=== PATIENT | female | born 1995 | race African-American/Black ===

== ENCOUNTER 2016-10-28 15:52 | Emergency (ER) | payer MEDICAID ==
[2016-10-28 16:13] VITALS: TEMP 98; BMI 22.2
[2016-10-28] MEDS ORDERED: NS 1,000 ML IV ONE ×2 (16:29)
[2016-10-28] MEDS ORDERED: SODIUM CHLORIDE 0.9% 3 ML FLUSH FLUSH PRN (16:29)
--- NOTE | 2016-10-28 16:29 | EDPRACDOC ---
- General Information Information Source: Patient Mode Of Arrival: Ambulance - History of Present Illness Onset: 2 HOURS Pain Location: Reports: Diffuse Pain Context: Reports: Spontaneous Pain Severity: Mild Pain Quality: Reports: Aching (PRESSURE) Pain Radiation: Reports: No Radiation Last Menstrual Period: YEARS : No (IUD AND BCP) Control Method: Reports: IUD, BCPs Modifying Factors: improves with: Nothing Female Associated Signs & Symptoms: Reports: Nausea, Vomiting, Other (HEADACHE AND ABDOMINAL PAIN) Oral Intake: Decreased Urinary Output: Normal <David Rose - Last Filed: 10/28/16 17:30> <Shani Sargent - Last Filed: 10/28/16 18:39> <Shilpa Farah - Last Filed: 10/28/16 18:46> - General Information Chief Complaint: Abdominal Pain Stated Complaint: GENERALIZED WEAKNESS Time Seen by Provider: 10/28/16 16:26 Home Medications: Home Medications Montelukast Sodium 10 mg PO QHS 06/18/15 Cyclobenzaprine HCl [Flexeril] 10 mg PO TID PRN #20 tablet 07/11/16 Albuterol Sulfate [Proair Hfa] 2 puff INH Q4H PRN 10/28/16 Fluticasone/Salmeterol [Advair Hfa 115-21 Mcg Inhaler] 2 inh INH BID 10/28/16 Lamotrigine [Lamictal Xr] 200 mg PO BID 10/28/16 Levonorgestrel [Mirena] 1 each IY .[id number] 10/28/16 Loratadine 10 mg PO DAILY 10/28/16 Norethindrone-Ethinyl Estrad [Alyacen] 1 tab PO DAILY 10/28/16 Olopatadine HCl [Pataday] 1 drop OU DAILY 10/28/16 Oxycodone HCl/Acetaminophen [Percocet 5-325 mg Tablet] 1 tab PO Q4H PRN #10 tablet 10/28/16 PEG-Electrolytes (Miralax) [Miralax] 17 gm PO DAILY #1 box 10/28/16 Allergies/Adverse Reactions: Allergies Allergy/AdvReac Type Severity Reaction Status Date / Time No Known Allergies Allergy Verified 10/28/16 16:13 - History of Present Illness HPI: PT PRESENTS TO ED WITH 1-2 DAYS OF DIFFUSE ABDOMINAL PAIN N/V AND HEADACHE FOR 1 -2 DAYS. NO FEVERS OR CHILLS AT THIS TIME. WAS RECENTLY TREATED FOR BACTERIAL VAGINOSIS SHE STATES THOSE SYMPTOMS ARE GONE. PT STATES THE PAIN IS ACHY AND PRESSURE LIKE SEEMS TO GET WORSE WITH N/V. (David Rose) ED Past Medical History - History Reviewed Yes Nurses notes reviewed and agree except as marked Travel Outside of [place] in the Last 3 Months?: No - Patient Medical History Neurological History: Reports: Seizures Respiratory History: Reports: Asthma Psychological History: Denies: Depression Surgical History: Denies: Hysterectomy - Social Medical History Smoking Status: Never smoker ETOH: None Substance Abuse: None Lives With: Other Lives In: Home <David Rose - Last Filed: 10/28/16 17:30> EDM Review of Systems - Review of Systems ROS Negative Except as Marked: Yes All systems reviewed and were negative except as marked Constitutional: No Symptoms Reported. negative: Fever, Chills, Weakness, Fatigue, Loss of Appetite Eyes: No Symptoms Reported. negative: Redness, Blurred Vision, Double Vision, Discharge, Pain, Light Sensitive, Photophobia Ears: No Symptoms Reported. negative: Pain, Hearing Loss, Drainage, Ear Pulling Throat: No Symptoms Reported. negative: Pain, Swelling Nose: No Symptoms Reported. negative: Congestion, Bleeding, Discharge, Injection, Swelling, Deformity, Ecchymosis, Tender, Abrasion, Laceration Mouth: No Symptoms Reported. negative: Pain, Drooling Respiratory: No Symptoms Reported. negative: Cough, Brassy Cough, Barky Cough, Shortness of Breath, Wheezing, Hemoptysis Cardiovascular: No Symptoms Reported. negative: Chest Pain, Palpitations, Syncope, Edema, Orthopnea, PND, Skin Mottling, Cyanosis Gastrointestinal: Nausea, Pain, Vomiting. negative: Constipation, Diarrhea, Formula Intolerance, Melena Genitourinary: No Symptoms Reported. negative: Dysuria, Hematuria, Frequency, Discharge, Bleeding, Testicular Pain, Neurological: Headache. negative: Dizziness, Gait Difficulty, Numbness, Seizure , Speech Difficulty, Weakness Musculoskeletal: No Symptoms Reported. negative: Neck, Chestwall, Ribs, Back, Shoulder, Arm, Elbow, Forearm, Wrist, Hand, Pelvis, Hip, Femur, Knee, Leg, Ankle , Foot Integumentary: No Symptoms Reported. negative: Itching, Rash, Bruising, Wound Allergic/Immunologic: No Symptoms Reported. negative: Hives, Itching Hematologic: No Symptoms Reported. negative: Lymphadenopathy, Easy Bruising, Easy Bleeding Endocrine: No Symptoms Reported. negative: Weight Gain, Weight Loss Psychiatric: No Symptoms Reported. negative: Anxiety, Depression, Hallucinations, Insomnia, Suicidal <David Rose - Last Filed: 10/28/16 17:30> - Physical Exam Constitutional: Alert (Awake), No apparent distress Oriented to: Time, Person, Place - HEENT Head: Normal ( normocephalic) Eye Exam: Normal (PERRL, EOMI, Sclera white) Oropharynx: Normal (Pharynx:Moist without exudate,Gums-no swelling) Tympanic Membrane: Normal ENT EAC: Normal TMJ: Normal Nose: No Symptoms Reported (septum midline) Neck: Normal (FROM, trachea at midline) - Respiratory/Cardiovascular Respiratory: Normal - CTA (BBS clear to auscultation without adventitious sounds ) Cardiovascular: Normal (RRR without murmur, gallop or rub) - GI Auscultation: Normal (NABS) Palpation: Normal (Soft,No rebound or guarding, non distended) Tenderness: Diffuse, Mild (NO REBOUND OR GUARDING NOTED ON DISTRACTED EXAM.) Lu's Sign: Negative - Bladder: Normal - Musculoskeletal Back: Normal (Non-Tender) Extremities: Normal (Normal tone, Pulses 2+ No cyanosis or edema, FROM) - Integumentary Skin: Normal, Warm, Dry Lymphatics: Normal (no adenopathy) - Neurologic Memory Impaired: Normal Motor Function: Normal (Normal tone, Pulses 2+ No cyanosis or edema, FROM) Cranial Nerve: Normal (CN II-X11 intact sensation, strength 5/5) Cerebellar: Normal Mood Description: Normal Perception: Normal <David Rose - Last Filed: 10/28/16 17:30> - Differential Diagnosis Cholecystitis, Cholelithiasis, Colic, Constipation, Pancreatitis, PUD, UTI - Results 10/28/16 16:50 10/28/16 16:50 <David Rose - Last Filed: 10/28/16 17:30> - Re-evaluation Re-evaluation 1 Re-evaluation Time: 18:00 - Results 10/28/16 16:50 10/28/16 16:50 <Shani Sargent - Last Filed: 10/28/16 18:39> - Results 10/28/16 16:50 10/28/16 16:50 - Diagnostic Imaging Abdomen Image interpreted by: Radiologist <Shilpa Farah - Last Filed: 10/28/16 18:46> - Re-evaluation Re-evaluation 1 No changes in clinical status or new information from previous documentation. Vital Signs: Temp:98 F HR: 99 BP: 137/60 RR: 20 Pox: 99%. Continue with current plan. (Shani Sargent) - Results WBC 7.9 xk/uL (3.8-10.8) 10/28/16 16:50 RBC 4.46 xM/uL (4.20-5.40) 10/28/16 16:50 Hgb 13.1 g/dL (12.0-16.0) 10/28/16 16:50 Hct 38.8 % (36-47) 10/28/16 16:50 MCV 87 fL (81-99) 10/28/16 16:50 MCH 29.3 pg (27-32) 10/28/16 16:50 MCHC 33.7 g/dl (33-36) 10/28/16 16:50 RDW 13.3 % (11.5-14.5) 10/28/16 16:50 Plt Count 177 xk/uL (130-400) 10/28/16 16:50 MPV 7.6 fL (7.4-10.4) 10/28/16 16:50 Neut % (Auto) 79.7 % (45-76) H 10/28/16 16:50 Lymph % (Auto) 11.9 % (17-44) L 10/28/16 16:50 [place] % (Auto) 7.7 % (3-10) 10/28/16 16:50 Eos % (Auto) 0.3 % (0-5) 10/28/16 16:50 Baso % (Auto) 0.4 % (0-2) 10/28/16 16:50 Absolute Neuts (auto) 6.24 xk/uL (1.7-8.2) 10/28/16 16:50 Absolute Lymphs (auto) 0.87 xk/uL (0.65-4.75) 10/28/16 16:50 Sodium 139 mEq/L (137-146) 10/28/16 16:50 Potassium 4.2 mEq/L (3.5-5.1) 10/28/16 16:50 Chloride 103 mEq/L (98-107) 10/28/16 16:50 Carbon Dioxide 25 mMOL/L (22-33) 10/28/16 16:50 Anion Gap 15 mEq/L (8-16) 10/28/16 16:50 BUN 22 MG/DL (7-17) H 10/28/16 16:50 Creatinine 0.80 MG/DL (0.52-1.04) 10/28/16 16:50 Estimated GFR (MDRD) > 60 mL/min (>=60) 10/28/16 16:50 Glucose 85 mg/dL (70-99) 10/28/16 16:50 Calculated Osmolality 270 MOs/Kg (270-290) 10/28/16 16:50 Calcium 9.4 MG/DL (8.4-10.2) 10/28/16 16:50 Total Bilirubin 0.4 MG/DL (0.2-1.3) 10/28/16 16:50 AST 21 IU/L (14-36) 10/28/16 16:50 ALT 30 IU/L (9-52) 10/28/16 16:50 Alkaline Phosphatase 66 IU/L (38-126) 10/28/16 16:50 Total Protein 8.2 G/DL (6.3-8.2) 10/28/16 16:50 Albumin 4.4 G/DL (3.5-5.0) 10/28/16 16:50 Lipase 36 U/L (23-300) 10/28/16 16:50 Urine Color Yellow 10/28/16 16:20 Urine Clarity Sl cldy 10/28/16 16:20 Urine pH 5.0 (5.0-8.0) 10/28/16 16:20 Ur Specific [place] 1.025 (1.003-1.035) 10/28/16 16:20 Urine Protein Neg (NEG/TRACE) 10/28/16 16:20 Urine Glucose (UA) Neg (NEGATIVE) 10/28/16 16:20 Urine Ketones Neg (NEGATIVE) 10/28/16 16:20 Urine Occult Blood Neg (NEG/TRACE) 10/28/16 16:20 Urine Nitrite Neg (NEGATIVE) 10/28/16 16:20 Urine Bilirubin Neg (NEGATIVE) 10/28/16 16:20 Urine Urobilinogen <2.0 MG/DL (0-1) 10/28/16 16:20 Ur Leukocyte Esterase Neg (NEGATIVE) 10/28/16 16:20 Urine RBC 0-2 (0-5) 10/28/16 16:20 Urine WBC 2-5 (0-5) 10/28/16 16:20 Urine Bacteria Few (NEG/FEW) 10/28/16 16:20 Urine Mucus Occ (NEG/OCC) 10/28/16 16:20 Urine Test Neg (NEGATIVE) 10/28/16 16:20 Lab Results 10/28/16 10/28/16 10/28/16 16:50 16:50 16:20 WBC 7.9 RBC 4.46 Hgb 13.1 Hct 38.8 MCV 87 MCH 29.3 MCHC 33.7 RDW 13.3 Plt Count 177 MPV 7.6 Neut % (Auto) 79.7 H Lymph % (Auto) 11.9 L [place] % (Auto) 7.7 Eos % (Auto) 0.3 Baso % (Auto) 0.4 Absolute Neuts (auto) 6.24 Absolute Lymphs (auto) 0.87 Sodium 139 Potassium 4.2 Chloride 103 Carbon Dioxide 25 Anion Gap 15 BUN 22 H Creatinine 0.80 Estimated GFR (MDRD) > 60 Glucose 85 Calculated Osmolality 270 Calcium 9.4 Total Bilirubin 0.4 AST 21 ALT 30 Alkaline Phosphatase 66 Total Protein 8.2 Albumin 4.4 Lipase 36 Urine Color Yellow Urine Clarity Sl cldy Urine pH 5.0 Ur Specific [place] 1.025 Urine Protein Neg Urine Glucose (UA) Neg Urine Ketones Neg Urine Occult Blood Neg Urine Nitrite Neg Urine Bilirubin Neg Urine Urobilinogen <2.0 Ur Leukocyte Esterase Neg Urine RBC 0-2 Urine WBC 2-5 Urine Bacteria Few Urine Mucus Occ Urine Test 10/28/16 16:20 WBC RBC Hgb Hct MCV MCH MCHC RDW Plt Count MPV Neut % (Auto) Lymph % (Auto) [place] % (Auto) Eos % (Auto) Baso % (Auto) Absolute Neuts (auto) Absolute Lymphs (auto) Sodium Potassium Chloride Carbon Dioxide Anion Gap BUN Creatinine Estimated GFR (MDRD) Glucose Calculated Osmolality Calcium Total Bilirubin AST ALT Alkaline Phosphatase Total Protein Albumin Lipase Urine Color Urine Clarity Urine pH Ur Specific [place] Urine Protein Urine Glucose (UA) Urine Ketones Urine Occult Blood Urine Nitrite Urine Bilirubin Urine Urobilinogen Ur Leukocyte Esterase Urine RBC Urine WBC Urine Bacteria Urine Mucus Urine Test Neg (Shani Sargent W) (Shilpa Farah N) - Diagnostic Imaging Abdomen 10/28/16 18:46 Patient Name: SOLO GALEANO LOC: ED : 1995 AGE: 21 Order Date:10/28/16 Date of Service:12/09 Report # [id number] Ord Physician: David Rose Exam # [id number] Emergency Physician: Provider,ER Exam(s): [id number] CT/CT ABD-PELV W/IV CM CLINICAL DATA: Epigastric abdominal pain and vomiting for 2 days. EXAM: CT ABDOMEN AND PELVIS WITH CONTRAST TECHNIQUE: Multidetector CT imaging of the abdomen and pelvis was performed using the standard protocol following bolus administration of intravenous contrast. Due to breathing motion artifact, imaging obtained twice in attempt to reduce motion artifact. CONTRAST: 100 mL Isovue 370 IV COMPARISON: None. FINDINGS: Breathing motion artifact with motion through the upper and to a lesser extent lower abdomen. Lower chest: The included lung bases are clear. Liver: Dome of the right lobe of the liver not included in the field of view. Liver is otherwise unremarkable. Hepatobiliary: Gallbladder physiologically distended, no calcified stone. No biliary dilatation. Pancreas: No ductal dilatation or inflammation. Evaluation limited by paucity of intra-abdominal fat and adjacent non-opacified bowel loops. Spleen: Normal. Adrenal glands: No nodule. Kidneys: Symmetric renal enhancement. No hydronephrosis. Excretion secondary to repeat examination. Stomach/Bowel: Evaluation limited by lack of enteric contrast, mild motion artifact, and paucity of intra-abdominal fat. Stomach physiologically distended. There are no dilated small bowel loops. Moderate stool burden throughout the entire colon. The appendix is not confidently identified, no pericecal inflammatory change. Vascular/Lymphatic: No retroperitoneal adenopathy. Abdominal aorta is normal in caliber. Reproductive: The uterus is deviated to the left. Detailed evaluation obscured by motion and adjacent non-opacified bowel loops. An IUD is in place. There is a probable corpus luteal cyst in the right ovary. The left ovary is not confidently identified. Bladder: Physiologically distended without wall thickening. Other: No free air, free fluid, or intra-abdominal fluid collection. Musculoskeletal: There are no acute or suspicious osseous abnormalities. IMPRESSION: 1. No acute abnormality on motion limited exam. 2. Moderate stool burden, can be seen with constipation. 3. Probable corpus luteal cyst in the right ovary. IUD in the uterus. Electronically Signed By: Afia Hyatt M.D. On: 10/28/2016 18:29 Electronically Signed By: Afia Hyatt MD Electronically Signed Date/Time: 832 Dictate Date/Time: 10/28/161820 Technologist: Marly Phelan Transcribed By: Juvenal Transcribed Date/Time: 10/28/161828 (Shilpa Farah) <aDvid Rose - Last Filed: 10/28/16 17:30> - Departure Disposition: Home Education/Counseling Given To: Patient Education/Counseling Given Regarding: Diagnosis, Treatment, Prognosis, Follow Up <Shani Sargent - Last Filed: 10/28/16 18:39> - Departure Yes I personally saw and evaluated the patient. <Shilpa Farah - Last Filed: 10/28/16 18:46> - Departure Condition: Stable Final Diagnosis: Right ovarian cyst Constipation Qualifiers: Constipation type: unspecified constipation type Qualified Code(s): K59.00 - Constipation, unspecified Instructions: Ovarian Cyst (ED), Constipation (ED), High Fiber Diet (ED), Acute Abdominal Pain (ED) Referrals: None,No Provider [Primary Care Provider] - One Week Prescriptions: New PEG-Electrolytes (Miralax) [Miralax] 17 gm PO DAILY #1 box Continue Oxycodone HCl/Acetaminophen [Percocet 5-325 mg Tablet] 1 tab PO Q4H PRN #10 tablet PRN Reason: Severe Pain No Action Montelukast Sodium 10 mg PO QHS Cyclobenzaprine HCl [Flexeril] 10 mg PO TID PRN #20 tablet PRN Reason: Muscle Spasms Olopatadine HCl [Pataday] 1 drop OU DAILY Fluticasone/Salmeterol [Advair Hfa 115-21 Mcg Inhaler] 2 inh INH BID Albuterol Sulfate [Proair Hfa] 2 puff INH Q4H PRN PRN Reason: Wheezing Norethindrone-Ethinyl Estrad [Alyacen] 1 tab PO DAILY Loratadine 10 mg PO DAILY Lamotrigine [Lamictal Xr] 200 mg PO BID Levonorgestrel [Mirena] 1 each IY [id number] Additional Instructions: FOLLOW UP WITH PCP NEXT WEEK. RETURN TO THE ED FOR WORSENING SYMPTOMS OR CONCERNS
[2016-10-28 16:43] LABS: LEUKOCYTES/URINE NEG (NEGATIVE); NITRITE/URINE NEG (NEGATIVE); RBC/URINE 0-2 (0-5); URINE OCCULT BLOOD NEG (NEG/TRACE)
[2016-10-28] MEDS ORDERED: ONDANSETRON HCL 4 MG/2 ML VIAL IV ONE (16:47)
[2016-10-28 17:02] LABS: AUTOMATED BASOPHIL 0.4 % (0-2); AUTOMATED EOSINOPHIL 0.3 % (0-5); AUTOMATED LYMPH 11.9 % (17-44); AUTOMATED MONOCYTE 7.7 % (3-10); AUTOMATED NEUTROPHIL 79.7 % (45-76); MPV 7.6 fL (7.4-10.4)
[2016-10-28 17:14] LABS: BLOOD UREA NITROGEN 22 MG/DL (7-17); CALCIUM 9.4 MG/DL (8.4-10.2); CALCULATED OSMOLALITY 270 MOs/Kg (270-290); CHLORIDE 103 mEq/L (98-107); GLUCOSE 85 mg/dL (70-99); SODIUM LEVEL 139 mEq/L (137-146); TOTAL PROTEIN 8.2 G/DL (6.3-8.2)
[2016-10-28] MEDS ORDERED: GI COCKTAIL 30 ML DOSE PO ONE (17:35)
[2016-10-28] MEDS ORDERED: MORPHINE 4 MG/ML INJECTION IV ONE (17:37)
[2016-10-28] MEDS ORDERED: Pharmacy Review for Metformin - IV Contrast Given SCH (18:00)
[2016-10-28] MEDS ORDERED: SODIUM CHLORIDE 0.9% 3 ML FLUSH FLUSH SCH (18:00)
--- NOTE | 2016-10-28 18:32 | DIRPT ---
CLINICAL DATA: Epigastric abdominal pain and vomiting for 2 days. EXAM: CT ABDOMEN AND PELVIS WITH CONTRAST TECHNIQUE: Multidetector CT imaging of the abdomen and pelvis was performed using the standard protocol following bolus administration of intravenous contrast. Due to breathing motion artifact, imaging obtained twice in attempt to reduce motion artifact. CONTRAST: 100 mL Isovue 370 IV COMPARISON: None. FINDINGS: Breathing motion artifact with motion through the upper and to a lesser extent lower abdomen. Lower chest: The included lung bases are clear. Liver: Dome of the right lobe of the liver not included in the field of view. Liver is otherwise unremarkable. Hepatobiliary: Gallbladder physiologically distended, no calcified stone. No biliary dilatation. Pancreas: No ductal dilatation or inflammation. Evaluation limited by paucity of intra-abdominal fat and adjacent non-opacified bowel loops. Spleen: Normal. Adrenal glands: No nodule. Kidneys: Symmetric renal enhancement. No hydronephrosis. Excretion secondary to repeat examination. Stomach/Bowel: Evaluation limited by lack of enteric contrast, mild motion artifact, and paucity of intra-abdominal fat. Stomach physiologically distended. There are no dilated small bowel loops. Moderate stool burden throughout the entire colon. The appendix is not confidently identified, no pericecal inflammatory change. Vascular/Lymphatic: No retroperitoneal adenopathy. Abdominal aorta is normal in caliber. Reproductive: The uterus is deviated to the left. Detailed evaluation obscured by motion and adjacent non-opacified bowel loops. An IUD is in place. There is a probable corpus luteal cyst in the right ovary. The left ovary is not confidently identified. Bladder: Physiologically distended without wall thickening. Other: No free air, free fluid, or intra-abdominal fluid collection. Musculoskeletal: There are no acute or suspicious osseous abnormalities. IMPRESSION: 1. No acute abnormality on motion limited exam. 2. Moderate stool burden, can be seen with constipation. 3. Probable corpus luteal cyst in the right ovary. IUD in the uterus. Electronically Signed By: Afia Hyatt M.D. On: 10/28/2016 18:29
[2016-10-28 18:59] VITALS: PULSE 102
[2016-10-28 19:01] VITALS: BP 109/63
== END 2016-10-28 19:00 | disposition home or self-care (01) ==
LOC: ED 15:52
DX: N83.201 Unspecified ovarian cyst, right side (principal); K59.00 Constipation, unspecified
CPT/HCPCS: 36415; 74177; 80053; 81001; 81025; 83690; 85025; 96361; 96374; 96375; 99284; A9698; J2270; J2405; J3490